=== PATIENT | female | born 1945 | race Caucasian/White ===

== ENCOUNTER 2017-10-05 12:30 | Emergency (ER) | payer OTHER ==
[2017-10-05] MEDS ORDERED: NS 1,000 ML IV ONE (12:40)
[2017-10-05 12:49] LABS: PLATELET COUNT 216 10^3/uL (150-400)
[2017-10-05 13:01] LABS: INR 0.89 (0.83-1.16)
[2017-10-05 13:58] VITALS: BP 153/85
--- NOTE | 2017-10-05 14:01 | EDPHY ---
H & P Time Seen by Provider: 10/05/17 12:40 HPI/ROS: CHIEF COMPLAINT: Facial droop HISTORY OF PRESENT ILLNESS: Per patient and her son she noticed Friday morning that her right eye with close normally and that she had facial droop which seem to be affecting her speech. She denies any headache, numbness or weakness of her extremities. This morning her son encouraged her to come in for evaluation. In the emergency department patient states she has some mild neck pain "like I need massage". She also states she had a mild headache but it is mostly gone. She has had left ear ache intermittently for about 1 year and she says that over the last 2 months she has had some right upper tooth pain but is not yet seen a dentist about that. Patient denies any recent upper respiratory infection. She has had no nausea, vomiting, chest pain, shortness of breath. REVIEW OF SYSTEMS: Constitutional: No fever, no chills. Eyes: No discharge. ENT: No sore throat. Cardiovascular: No chest pain, no palpitations. Respiratory: No cough, no shortness of breath. Gastrointestinal: No abdominal pain, no vomiting. Genitourinary: No dysuria. Musculoskeletal: No back pain. Skin: No rashes. Neurological: Per HPI General Appearance: Alert, no distress. Eyes: Pupils equal and round no pallor or injection. Extraocular motions intact. ENT, Mouth: Mucous membranes moist. TMs clear bilaterally. Oropharynx clear, uvula midline. Respiratory: There are no retractions, lungs are clear to auscultation. Cardiovascular: Regular rate and rhythm. Gastrointestinal: Abdomen is soft and nontender, no masses, bowel sounds normal. Neurological: Facial nerve palsy with weakness, no sensory loss. Cranial nerves otherwise intact. Normal upper and lower extremity strength and sensation. Speech fluent. Skin: Warm and dry, no rashes. Musculoskeletal: Neck is supple nontender. Extremities are symmetrical, full range of motion, no edema. Psychiatric: Patient is oriented X 3, there is no agitation. Medical/surgical history: Appendectomy, tonsillectomy, ankle surgery, vein stripping. Type 2 diabetes, hypothyroid, hypertension. Social history: No tobacco, no ETOH. Smoking Status: Never smoked Constitutional: Initial Vital Signs Temperature (C) 36.6 C 10/05/17 12:42 Heart Rate 85 10/05/17 12:42 Respiratory Rate 16 10/05/17 12:42 Blood Pressure 196/102 H 10/05/17 12:42 O2 Sat (%) 95 10/05/17 12:42 O2 Delivery Mode Room Air Allergies/Adverse Reactions: Iodinated Contrast- Oral and IV Dye [Iodinated Contrast Media - IV Dye] Allergy (Unknown, Verified 10/05/17 12:48) IV CONTRAST Allergy (Uncoded 10/05/17 12:48) Home Medications: Medication Instructions Recorded Metformin HCl [Metformin 1000 mg] 1,000 mg PO BIDMEAL 04/22/11 Levothyroxine [Synthroid 100 mcg 100 mcg PO DAILY06 11/10/13 (*)] glipiZIDE [Glipizide 10 MG (RX)] 10 mg PO BIDMEAL 11/10/13 Cozaar 10/05/17 Valacyclovir HCl [Valtrex] 1,000 mg PO TID #21 tab 10/05/17 predniSONE [Prednisone] 60 mg PO DAILY 7 Days #21 tab.ds.pk 10/05/17 Medical Decision Making - Diagnostics Imaging Results: Imaging Impressions Head CT 10/05/17 12:40 Impression: Normal noncontrast CT of the brain. Results called to Dr. Fowler at the time of the interpretation. Imaging: Discussed imaging studies w/ weight caller Radiologist ED Course/Re-evaluation: Several re-evaluations. Patient with no new symptoms. Blood pressure remains high. Discussed CT findings and lab reports. Reviewed Heart's palsy Diagnosis in care of the eye in detail. Discharge blood pressure 153/95. Differential Diagnosis: Differential diagnosis includes but is not limited to CVA, TIA, Heart's palsy, hypertensive emergency, diabetic neuropathy. After evaluation patient's history , physical exam consistent with Heart's palsy. No signs of CVA, TIA, hyperglycemic complication although blood sugar was in the low 200s. Low or no suspicion for hypertensive emergency. Discussed with patient treatment for Heart 's palsy and prognosis. Also recommended she follow up with her primary care physician for blood pressure recheck. I did remind her that her blood sugars will be elevated on the prednisone and that she should be very strict with her dietary control for her diabetes. Return precautions discussed in detail. Stable for discharge. - Data Points Laboratory Results: Laboratory Results 10/05/17 12:41 10/05/17 12:41 10/05/17 10/05/17 10/05/17 12:41 12:41 12:41 WBC 8.63 10^3/uL 10^3/uL (3.80-9.50) RBC 4.19 10^6/uL 10^6/uL (4.18-5.33) Hgb 13.4 g/dL g/dL (12.6-16.3) Hct 38.8 % % (38.0-47.0) MCV 92.6 fL fL (81.5-99.8) MCH 32.0 pg pg (27.9-34.1) MCHC 34.5 g/dL g/dL (32.4-36.7) RDW 12.5 % % (11.5-15.2) Plt Count 216 10^3/uL 10^3/uL (150-400) MPV 11.9 fL H fL (8.7-11.7) Neut % (Auto) 55.3 % % (39.3-74.2) Lymph % (Auto) 29.9 % % (15.0-45.0) Hand % (Auto) 8.1 % % (4.5-13.0) Eos % (Auto) 5.3 % % (0.6-7.6) Baso % (Auto) 1.3 % % (0.3-1.7) Nucleat RBC Rel Count 0.0 % % (0.0-0.2) Absolute Neuts (auto) 4.77 10^3/uL 10^3/uL (1.70-6.50) Absolute Lymphs (auto) 2.58 10^3/uL 10^3/uL (1.00-3.00) Absolute Monos (auto) 0.70 10^3/uL 10^3/uL (0.30-0.80) Absolute Eos (auto) 0.46 10^3/uL H 10^3/uL (0.03-0.40) Absolute Basos (auto) 0.11 10^3/uL H 10^3/uL (0.02-0.10) Absolute Nucleated RBC 0.00 10^3/uL 10^3/uL (0-0.01) Immature Gran % 0.1 % % (0.0-1.1) Immature Gran # 0.01 10^3/uL 10^3/uL (0.00-0.10) PT 12.0 SEC SEC (12.0-15.0) INR 0.89 (0.83-1.16) APTT 30.0 SEC SEC (23.0-38.0) Sodium 140 mEq/L mEq/L (135-145) Potassium 4.4 mEq/L mEq/L (3.3-5.0) Chloride 102 mEq/L mEq/L (97-110) Carbon Dioxide 23 mEq/l mEq/l (22-31) Anion Gap 15 mEq/L mEq/L (8-16) BUN 20 mg/dL mg/dL (7-23) Creatinine 1.2 mg/dL H mg/dL (0.6-1.0) Estimated GFR 44 Glucose 251 mg/dL H mg/dL (70-100) Calcium 9.2 mg/dL mg/dL (8.5-10.4) Departure - Departure Disposition: Home, Routine, Self-Care Clinical Impression: Heart's palsy Condition: Good Instructions: Heart Palsy (ED) Additional Instructions: I care is very important. Use artificial tears as discussed and make sure that you tape your eye shut at night. Referrals: Taylor Naqvi MD [Primary Care Provider] - As per Instructions Prescriptions: predniSONE [Prednisone] 60 mg PO DAILY 7 Days #21 tab.ds.pk Valacyclovir HCl [Valtrex] 1,000 mg PO TID #21 tab
== END 2017-10-05 13:57 | disposition home or self-care (01) ==
LOC: CED 12:30
DX: G51.0 Bell's palsy (principal); E11.9 Type 2 diabetes mellitus without complications; I10 Essential (primary) hypertension; Z79.84 Long term (current) use of oral hypoglycemic drugs
CPT/HCPCS: 70450-PO; 80048-PO; 85025-PO; 85610-PO; 85730-PO